=== PATIENT | female | born 1930 | race Caucasian/White ===

== ENCOUNTER 2018-10-03 08:37 | Observation (INO) ==
--- NOTE | 2018-10-03 08:52 | Emergency Department Note ---
ED Disposition Clinical Impression: Colitis, Hematochezia Disposition: Admitted as Observation Condition on Discharge: Good Time of Disposition: 11:17 - Critical Care Critical Care Time: No Attestation: On 10/03/18, the high probability of a clinically significant, sudden or life threatening deterioration of the following system(s) required my full and direct attention, intervention and personal management. The time I documented below is in addition to time spent performing reported procedures but includes the following listed in this critical care notation. Medical Decision Making - Medical Records Medical records reviewed: Yes: I reviewed the patient's medical records. - Chemo Inquiry Pt receiving controlled substance: No Chemo was queried for this patient: No Vital Signs: 10/03/18 08:41 10/03/18 09:05 10/03/18 09:26 Temperature 98.0 F Temperature Source Oral Pulse Rate [Right Radial] 72 67 62 Respiratory Rate 18 14 Blood Pressure [Right Arm] 117/67 119/62 114/54 L Blood Pressure Mean [Right Arm] 83 81 74 Blood Pressure Source [Right Arm] Automatic Cuff Automatic Cuff Automatic Cuff Blood Pressure Position [Right Arm] Sitting Sitting Sitting 02 Sat by Pulse Oximetry 96 93 L 92 L Oxygen Delivery Method Room Air Room Air Room Air 10/03/18 10:00 10/03/18 10:28 10/03/18 10:54 Temperature Temperature Source Pulse Rate [Right Radial] 65 62 64 Respiratory Rate 16 16 Blood Pressure [Right Arm] 126/55 L 121/42 L 118/58 L Blood Pressure Mean [Right Arm] 78 68 78 Blood Pressure Source [Right Arm] Automatic Cuff Automatic Cuff Automatic Cuff Blood Pressure Position [Right Arm] Sitting Supine Sitting 02 Sat by Pulse Oximetry 95 95 95 Oxygen Delivery Method Room Air Room Air Room Air 10/03/18 11:30 Temperature Temperature Source Pulse Rate [Right Radial] 62 Respiratory Rate 14 Blood Pressure [Right Arm] 118/59 L Blood Pressure Mean [Right Arm] 78 Blood Pressure Source [Right Arm] Automatic Cuff Blood Pressure Position [Right Arm] Sitting 02 Sat by Pulse Oximetry 94 L Oxygen Delivery Method Room Air - Lab Data Lab results reviewed: Yes: I reviewed the patient's lab results. Lab Results 10/03/18 08:50: WBC 13.5 H, RBC 4.35, Hgb 14.4, Hct 43.2, MCV 99.3 H, MCH 33.2 H , MCHC 33.4, RDW 12.9, Plt Count 318, MPV 7.6, Neut % (Auto) 89.4 H, Lymph % (Auto) 6.3 L, [place] % (Auto) 3.7, Eos % (Auto) 0.4, Baso % (Auto) 0.3, Neut # (Auto) 12.1 H, Lymph # (Auto) 0.9, [place] # (Auto) 0.5, Eos # (Auto) 0.1, Baso # (Auto) 0.0, Total Counted 100, Neutrophils % (Manual) 93 H, Lymphocytes % (Manual) 4 L, Atypical Lymphs % 1.0, Monocytes % (Manual) 2, Platelet Estimate Normal, RBC Morphology Normal 10/03/18 08:50: Sodium 131 L, Potassium 4.5, Chloride 96 L, Carbon Dioxide 25, Anion Gap 14.5, BUN 18, Creatinine 1.24 H, Estimated Creat Clear 30, Estimated GFR 41 L, Est GFR ( Amer) 50 L, Glucose 156 H, Calcium 9.2, Total Bilirubin 0.5, AST 16, ALT 20, Alkaline Phosphatase 81, Total Protein 7.7, Albumin 4.0, Globulin 3.7 H, Albumin/Globulin Ratio 1.1 10/03/18 08:50: PT 10.3, INR 1.00, APTT 26.4 10/03/18 08:50: ESR 13 10/03/18 08:50: C-Reactive Protein 0.7 10/03/18 10:44: Stool Occult Blood Positive A 10/03/18 11:20: Urine Color Yellow, Urine Appearance Clear, Urine pH 5.5, Ur Specific [place] <= 1.005, Urine Protein Negative, Urine Glucose (UA) Negative, Urine Ketones Negative, Urine Blood 2+, Urine Nitrate Positive, Urine Bilirubin Negative, Urine Urobilinogen 0.2, Ur Leukocyte Esterase 1+ A, Urine RBC Occasional, Urine WBC 5-10, Ur Squamous Epith Cells Occasional, Urine Bacteria Trace Result diagrams: 10/04/18 05:48 10/04/18 05:48 Orders (Tests/Meds): ED MEDICATIONS Discontinued Medications Generic Name Dose Route Start Last Admin Trade Name Freq PRN Reason Stop Dose Admin Acetaminophen 650 mg 10/03/18 12:23 Acetaminophen 325mg Tab PO 11/02/18 12:22 Q4HP PRN As Needed for Fever or Pain Amlodipine Besylate 5 mg 10/04/18 09:00 Norvasc 5mg Tablet PO 11/03/18 08:59 DAILY BREANNA Carvedilol 25 mg 10/03/18 21:00 10/03/18 20:25 Coreg 25mg Tablet PO 11/02/18 20:59 25 mg BID BREANNA Administration Sodium Chloride 1,000 mls @ 250 mls/hr 10/03/18 09:00 10/03/18 09:30 Sod Chlor 0.9% 1000ml Bag IV 11/02/18 08:59 250 mls/hr .Q4H BREANNA Administration Metronidazole 500 mg in 100 mls @ 100 mls/hr 10/03/18 11:15 10/03/18 11:10 Flagyl 500mg/100ml Ivpb IV 10/17/18 11:14 100 mls/hr Q8H BREANNA Administration Protocol Levofloxacin/Dextrose 750 mg in 150 mls @ 100 mls/hr 10/03/18 11:15 10/03/18 13:47 Levofloxacin 750mg/150ml Premix IV 10/17/18 11:14 100 mls/hr Q24H BREANNA Administration Protocol Sodium Chloride 1,000 mls @ 250 mls/hr 10/03/18 12:23 10/03/18 17:00 Sod Chlor 0.9% 1000ml Bag IV 11/02/18 08:59 250 mls/hr .Q4H BREANNA Administration Levofloxacin/Dextrose 750 mg in 150 mls @ 100 mls/hr 10/05/18 11:00 Levofloxacin 750mg/150ml Premix IV 10/19/18 10:59 Q48H BREANNA Protocol Metronidazole 500 mg in 100 mls @ 100 mls/hr 10/03/18 21:00 10/04/18 04:37 Flagyl 500mg/100ml Ivpb IV 10/17/18 20:59 100 mls/hr Q8H BREANNA Administration Protocol Sodium Chloride 1,000 mls @ 125 mls/hr 10/03/18 19:00 10/04/18 04:37 Sod Chlor 0.9% 1000ml Bag IV 11/02/18 18:59 125 mls/hr .Q8H BREANNA Administration Ioversol 75 ml 10/03/18 10:13 10/03/18 10:14 Rad-Optiray 350 100ml Vial IV 10/03/18 10:14 75 ml ONCE ONE Administration Levothyroxine Sodium 75 mcg 10/04/18 09:00 Synthroid 75mcg (0.075mg) Tablet PO 11/03/18 08:59 DAILY BREANNA Methylprednisolone Sodium Succinate 125 mg 10/03/18 11:14 10/03/18 11:20 Solu-Medrol 125mg/2ml Vial IV 10/03/18 11:15 125 mg ONCE ONE Administration Pt's Own Med 7.5 mg 10/03/18 21:00 10/03/18 20:26 Mirtazapine 7.5 Mg PO 11/02/18 20:59 7.5 mg Tab HS BREANNA Administration Pt's Own Med 5 mg 10/04/18 09:00 Oxybutynin Chloride PO 11/03/18 08:59 Er 5 Mg DAILY BREANNA Pravastatin Sodium 20 mg 10/04/18 09:00 Pravachol 20mg Tablet PO 11/03/18 08:59 DAILY BREANNA Sodium Chloride 10 ml 10/03/18 10:13 10/03/18 10:14 Rad-Saline Flush 10ml Syringe IV 10/03/18 10:14 10 ml ONCE ONE Administration Sodium Chloride 10 ml 10/03/18 12:53 Saline Flush 10ml Syringe IV 11/02/18 12:52 NEEDED PRN Maintain IV Site ORDERS Category Date Time Status Urine Culture Stat Micro 10/03/18 11:20 Results - Physician Consults Physician Consulted: Dr. Davon Birch Time: 11:16 Reason -: Admission Comment/Response: admit colitis, meds ordered and discussed General Adult HPI - General Stated complaint: diarrhea Time Seen by Provider: 10/03/18 08:48 Mode of Arrival: Ambulatory Source of Information: Patient, Spouse Limitations: No Limitations - History of Present Illness HPI narrative: diarrhea intermittently throughout week, this am noted dark blood. Had some pain in the evening, woke her up. No vomiting. No prior GI history of significance. Denies recent antibiotics. Onset (ago): week(s) (one) Location: abdomen Radiation: non-radiation Severity scale (1-10): 3 Quality: aching Consistency: intermittent Relieving factors: none Exacerbating factors: none Treatments prior to arrival: none - Related Data Home Medications Medication Instructions Recorded Confirmed RX: Acetaminophen [Acetaminophen 500 mg PO NEEDED PRN 10/03/18 10/03/18 Extra Strength] RX: Amlodipine Besylate 5 mg PO DAILY 10/03/18 10/03/18 [Amlodipine 5mg tab] RX: Aspirin 81 mg PO DAILY 10/03/18 10/03/18 RX: Carvedilol [Carvedilol 25mg 25 mg PO BID 10/03/18 10/03/18 Tab] RX: Cranberry Conc/Ascorbic Acid 1 each PO DAILY 10/03/18 10/03/18 [Cranberry Concentrate Softgel] RX: Levothyroxine Sodium 75 mcg PO DAILY 10/03/18 10/03/18 [Levothyroxine 75mcg (0.075mg) Tab] RX: Metformin HCl 500 mg PO BID 10/03/18 10/03/18 RX: Mirtazapine 7.5 mg PO HS 10/03/18 10/03/18 RX: Oxybutynin Chloride 5 mg PO DAILY 10/03/18 10/03/18 [Oxybutynin Chloride ER] RX: Pravastatin Sodium [Pravachol 20 mg PO DAILY 10/03/18 10/03/18 20mg Tablet] Previous Rx's Medication Instructions Recorded L. Acidophilus/Strept/LA P-Cornelius 0 each OP DAILY #30 capsule 10/04/18 [Georgette-Q Probiotic Capsule] levoFLOXacin [Levaquin 500mg 500 mg PO DAILY #7 tab 10/04/18 tab] metroNIDAZOLE [Flagyl 250mg 250 mg PO TID #21 tab 10/04/18 Tablet] Allergies Allergy/AdvReac Type Severity Reaction Status Date / Time No Known Allergies Allergy Unverified 07/21/17 15:07 [facility] History - Hepatitis A Screen Attestation statement:: This patient has been screened for Hepatitis A risk factors. I have reviewed the patient's past medical history: Yes ROS Obtained: Yes All systems reviewed & no additional complaints - Constitutional Constitutional: Denies chills, Denies fever(s) - Eyes Eyes: Denies change in vision - ENT Ears, Nose, Mouth, and Throat: Denies sore throat, Denies throat swelling - Cardiovascular Cardiovascular: Denies chest pain, Denies rapid heart rate, Denies slow heart rate - Respiratory Respiratory: No chest congestion, No cough, No dyspnea, No dyspnea on exertion - Gastrointestinal Gastrointestingal: Reports: abdominal pain, diarrhea, other (dark blood in stools). Denies: vomiting blood, nausea, vomiting - Genitourinary Female Genitourinary: Reports flank pain - Musculoskeletal Musculoskeletal: Reports system reviewed and no additional complaints, except as docu, Denies joint stiffness, Denies joint swelling, Denies muscle weakness - Integumentary/Breasts Skin/Breast: Denies rash - Neurologic Neurologic: Denies behavioral changes, Denies headache(s) - Hematologic/Lymphatic Henatologic/Lymphatic: Denies easy bleeding, Denies easy bruising Physical Exam - General General appearance: alert - Head Head exam: atraumatic, normocephalic, normal inspection - Eye Eye exam: Present: normal appearance, PERRL, EOMI - ENT ENT exam: Present: normal exam, normal oropharynx, mucous membranes moist, TM's normal bilaterally, normal external ear exam - Chest Chest inspection: Present: normal inspection, symmetric chest wall rise. A bsent: tenderness - Respiratory Respiratory exam: Present: normal lung sounds bilaterally. Absent: respiratory distress - Cardiovascular Cardiovascular exam: Present: regular rate, normal rhythm. Absent: JVD - Abdominal Exam Abdominal exam: Present: soft, tenderness. Absent: distention, guarding, rebound, rigidity, mass Abdominal tenderness: Present: LLQ, suprapubic - Rectal Exam Rectal exam: Present: heme (+) stool, bloody stool - Extremities Exam Extremities exam: Present: normal inspection, full ROM, normal capillary refill. Absent: calf tenderness - Back Exam Back exam: Present: normal inspection. Absent: tenderness - Neurological Exam Neurological exam: Present: alert, oriented X3 - Skin Skin exam: Present: warm, dry, intact, normal color - Other Other exam information: appears non-toxic
[2018-10-03 09:11] LABS: Basophils % 0.3 % (0.1-2.0); Eosinophils # 0.1 K/mm3 (0.0-0.4); Eosinophils % 0.4 % (0.1-12.0); Hematocrit 43.2 % (37.0-47.0); Hemoglobin 14.4 g/dL (12.2-16.2); Lymphocytes # 0.9 K/mm3 (0.7-4.5); Lymphocytes % 6.3 % (10-50); Mean Corpuscular HGB Conc 33.4 g/dL (31.8-35.4); Mean Corpuscular Hemoglobin 33.2 pg (27.0-31.2); Mean Corpuscular Volume 99.3 fl (81-99); Mean Platelet Volume 7.6 fl (7.4-10.4); Monocytes # 0.5 K/mm3 (0.1-1.0); Monocytes % 3.7 % (1.7-9.3); Neutrophils # 12.1 K/mm3 (1.8-7.8); Neutrophils % 89.4 % (37.0-80.0); Platelet Count 318 K/mm3 (142-424); Red Blood Count 4.35 M/mm3 (4.20-5.40); Red Cell Distribution Width 12.9 % (11.5-17.5); White Blood Count 13.5 K/mm3 (4.8-10.8)
[2018-10-03 09:17] LABS: Activated Partial Thrombo Time 26.4 seconds (23.6-34.0); Prothrombin Time 10.3 seconds (9.4-11.8)
[2018-10-03 09:19] LABS: Albumin/Globulin Ratio 1.1 (1.1-1.8); Anion Gap 14.5 mEq/L (5-15); Bilirubin,Total 0.5 mg/dL (0.2-1.0); Calcium 9.2 mg/dL (8.5-10.1); Globulin 3.7 gm/dl (1.3-3.2); Potassium 4.5 mmoL/L (3.5-5.1); Total Protein,Serum 7.7 gm/dL (6.4-8.2)
[2018-10-03 09:40] LABS: Lymphocytes % 4 % (10-50); Monocytes % 2 % (2-9); Neutrophils % 93 % (42-76); RBC Morphology Normal; Total Cells Counted 100
[2018-10-03 11:40] LABS: Microscopic, Urine URINE MICROSCOPIC (MICROSCOPIC)
[2018-10-03 11:44] LABS: Appearance,Urine CLEAR (Clear); Bilirubin,Urine Negative (Negative); Blood, Urine 2+ (Negative); Color,Urine YELLOW (Yellow); Glucose,Urine (UA) Negative (Negative); Ketones,Urine Negative (Negative); Leukocyte Esterase,Urine 1+ (Negative); PH,Urine 5.5 (5.0-8.5); Protein,Urine Negative (Negative); Specific Gravity, Urine <= 1.005 (1.005-1.030); Urobilinogen,Urine 0.2 EU/dl (0.2)
[2018-10-03 12:12] LABS: Bacteria,Urine Trace /lpf; RBC,Urine Occasional #/hpf (0-3); Squamous Epithelial Cell,Urine Occasional #/hpf (0-5)
--- NOTE | 2018-10-03 14:21 | Pharmacy Consult Notes ---
[facility] Pharmacy VTE Monitoring - Patient Demographics Admission date: 10/03/18 Report Date: 10/03/18 Time: 14:21 Allergies/Adverse Reactions: Patient Allergies No Known Allergies Allergy (Unverified 07/21/17 15:07) Height: 1.68 m Weight: 58.088 kg Patient Problems: Current Active Problems Colitis (Acute) Hematochezia (Acute) - VTE Risk Labs: VTE Related Lab Results Hgb 14.4 g/dL (12.2-16.2) 10/03/18 08:50 Hct 43.2 % (37.0-47.0) 10/03/18 08:50 Plt Count 318 K/mm3 (142-424) 10/03/18 08:50 PT 10.3 seconds (9.4-11.8) 10/03/18 08:50 INR 1.00 (0.9-1.1) 10/03/18 08:50 APTT 26.4 seconds (23.6-34.0) 10/03/18 08:50 BUN 18 mg/dL (7-18) 10/03/18 08:50 Creatinine 1.24 mg/dL (0.55-1.02) H 10/03/18 08:50 Estimated Creat Clear 30 mL/min (50-200) 10/03/18 08:50 Was VTE Risk Assessment Performed: Yes VTE Score: 4 VTE Risk Level: Low Risk - Prophylaxis VTE Prophylaxis Ordered?: Yes Types of VTE Prophylaxis: TEDS Knee High Location of Applied Device: Bilateral Lower Extremeties
[2018-10-03 15:25] LABS: Hematocrit 39.2 % (37.0-47.0); Hemoglobin 13.2 g/dL (12.2-16.2)
[2018-10-03 19:04] LABS: Hematocrit 38.5 % (37.0-47.0); Hemoglobin 13.3 g/dL (12.2-16.2)
[2018-10-03 23:20] LABS: Hemoglobin 12.2 g/dL (12.2-16.2)
[2018-10-04 06:21] LABS: Eosinophils % 0.1 % (0.1-12.0); Hematocrit 34.1 % (37.0-47.0); Hemoglobin 11.7 g/dL (12.2-16.2); Lymphocytes # 0.6 K/mm3 (0.7-4.5); Lymphocytes % 4.1 % (10-50); Mean Corpuscular HGB Conc 34.4 g/dL (31.8-35.4); Mean Corpuscular Hemoglobin 33.8 pg (27.0-31.2); Mean Corpuscular Volume 98.2 fl (81-99); Mean Platelet Volume 7.9 fl (7.4-10.4); Monocytes # 0.3 K/mm3 (0.1-1.0); Neutrophils # 13.9 K/mm3 (1.8-7.8); Neutrophils % 93.8 % (37.0-80.0); Platelet Count 266 K/mm3 (142-424); Red Blood Count 3.47 M/mm3 (4.20-5.40); Red Cell Distribution Width 13.1 % (11.5-17.5); White Blood Count 14.9 K/mm3 (4.8-10.8)
[2018-10-04 06:30] LABS: Anion Gap 13.3 mEq/L (5-15); Calcium 8.4 mg/dL (8.5-10.1); Potassium 4.3 mmoL/L (3.5-5.1)
--- NOTE | 2018-10-04 08:31 | H&P/Discharge Summary ---
General - General Admission date:: 10/03/18 Discharge date: 10/04/18 *Admission Date: 10/03/18 *Chief complaint: Rectal bleeding *History of present illness: 87-year-old white female with multiple medical problems including recurrent urinary tract infections, most recently treated 2 weeks ago, along with well- controlled diabetes and mild dementia who presented to the emergency department on the day of admission with slightly more frequent stools with occasional bleeding. She was evaluated in the ER, had normal blood counts, and was given IV fluids and subjected to CT scanning which revealed evidence of colitis in the sigmoid colon area. She was admitted to hospital. [facility] History I have reviewed the patient's past medical history: Yes Medical History: Reports:: Diabetes Mellitus Type 2, Hyperlipidemia, Hypertension *Have you ever received a pneumonia vaccine?: Yes *Have you received a flu vaccine this season?: Yes Laterality Cases: Left: Total Hip Replacement - *Social History Alcohol Intake: never *Occupational Status:: retired Housing: house Household Members: none *Travel in the last 8 weeks: None - Psychiatric History Expresses thoughts of harming self/others: None Suicide Plan Description: No Plan Family Hx:: Coronary Artery Disease, Diabetes, Heart Attack, Hyperlipidemia, Hypertension Review of Systems - Review of Systems Review of systems:: pertinent systems reviewed and negative unless documented below - Constitutional Denies anorexia, Denies body ache(s), Denies fever(s) - Eyes Denies blind spots - ENT Denies abnormal hearing, Denies bleeding gums - *Respiratory Denies change in phlegm color, Denies chest congestion, Denies cough - *Gastrointestinal Reports change in bowel habits, Reports change in stools, Denies abdominal pain, Denies loose stools, Denies heartburn, Denies vomiting blood, Denies bright, red blood in stools - *Musculoskeletal Denies abnormal walking - Integumentary/Breasts Denies acne, Denies hair loss - *Neurologic Denies behavioral changes, Denies headache(s) - Endocrine Denies cold intolerance - Hematologic/Lymphatic Denies easy bleeding Exam Vital signs and Labs for Last 24 Hours: Temp Pulse Resp BP Pulse Ox 97.7 F 91 H 17 166/75 H 98 10/04/18 07:22 10/04/18 07:22 10/04/18 07:22 10/04/18 07:22 10/04/18 07:22 Laboratory Results - last 24 hr 10/03/18 08:50: WBC 13.5 H, RBC 4.35, Hgb 14.4, Hct 43.2, MCV 99.3 H, MCH 33.2 H , MCHC 33.4, RDW 12.9, Plt Count 318, MPV 7.6, Neut % (Auto) 89.4 H, Lymph % (Auto) 6.3 L, [place] % (Auto) 3.7, Eos % (Auto) 0.4, Baso % (Auto) 0.3, Neut # (Auto) 12.1 H, Lymph # (Auto) 0.9, [place] # (Auto) 0.5, Eos # (Auto) 0.1, Baso # (Auto) 0.0, Total Counted 100, Neutrophils % (Manual) 93 H, Lymphocytes % (Manual) 4 L, Atypical Lymphs % 1.0, Monocytes % (Manual) 2, Platelet Estimate Normal, RBC Morphology Normal 10/03/18 08:50: Sodium 131 L, Potassium 4.5, Chloride 96 L, Carbon Dioxide 25, Anion Gap 14.5, BUN 18, Creatinine 1.24 H, Estimated Creat Clear 30, Estimated GFR 41 L, Est GFR ( Amer) 50 L, Glucose 156 H, Calcium 9.2, Total Bilirubin 0.5, AST 16, ALT 20, Alkaline Phosphatase 81, Total Protein 7.7, Albumin 4.0, Globulin 3.7 H, Albumin/Globulin Ratio 1.1 10/03/18 08:50: PT 10.3, INR 1.00, APTT 26.4 10/03/18 08:50: ESR 13 10/03/18 08:50: C-Reactive Protein 0.7 10/03/18 10:44: Stool Occult Blood Positive A 10/03/18 11:20: Urine Color Yellow, Urine Appearance Clear, Urine pH 5.5, Ur Specific [place] <= 1.005, Urine Protein Negative, Urine Glucose (UA) Negative, Urine Ketones Negative, Urine Blood 2+, Urine Nitrate Positive, Urine Bilirubin Negative, Urine Urobilinogen 0.2, Ur Leukocyte Esterase 1+ A, Urine RBC Occasional, Urine WBC 5-10, Ur Squamous Epith Cells Occasional, Urine Bacteria Trace 10/03/18 15:15: Hgb 13.2, Hct 39.2 10/03/18 19:00: Hgb 13.3, Hct 38.5 10/03/18 23:10: Hgb 12.2, Hct 35.0 L 10/04/18 05:48: WBC 14.9 H, RBC 3.47 L, Hgb 11.7 L, Hct 34.1 L, MCV 98.2, MCH 33.8 H, MCHC 34.4, RDW 13.1, Plt Count 266, MPV 7.9, Neut % (Auto) 93.8 H, Lymph % (Auto) 4.1 L, [place] % (Auto) 2.0, Eos % (Auto) 0.1, Baso % (Auto) 0.0 L, Neut # (Auto) 13.9 H, Lymph # (Auto) 0.6 L, [place] # (Auto) 0.3, Eos # (Auto) 0.0, Baso # (Auto) 0.0 10/04/18 05:48: Sodium 137, Potassium 4.3, Chloride 105, Carbon Dioxide 23, Anion Gap 13.3, BUN 12 D, Creatinine 0.83 D, Estimated Creat Clear 37, Estimated GFR 65, Est GFR ( Amer) 79 D, Glucose 184 H, Calcium 8.4 L I & O for Last 24 hours: Intake & Output 10/01/18 10/02/18 10/03/18 10/04/18 11:59 11:59 11:59 11:59 Intake Total 3100 / 3100 Output Total 600 / 600 Balance 2500 / 2500 Weight 130 lb 128 lb 1 oz Microbiology Reports for the Last 24 Hours: Microbiology 10/03/18 11:20 Urine,Clean Catch Urine Culture - Preliminary Gram Negative Rods Narrative: This morning patient is pleasant. Alert. Oriented x2, a little fuzzy about the date but in general is oriented to season and place. Oropharynx clear. No JVD. Heart rate regular with previously noted 2/6 holosystolic murmur. Lungs are clear bilaterally. Abdomen is soft, nontender, no flank tenderness. Slight tenderness over the suprapubic area. No rebound, guarding or masses palpable. Extremities are warm and well-perfused. Neurologic exam nonfocal. Hospital Course Hospital Course: Patient was admitted overnight. IV fluids and antibiotics were given. Serial blood counts were done showing slight but expected decrease in her hemoglobin secondary to delusional effect. Patient had no further bloody stools and in fact ate well this morning with 100% of her p.o. intake. Patient did have gram-negative rods culture from urine, greater than 100,000 colonies, sensitivities and identification pending at the time of discharge. Plan will be to discharge her home with Levaquin and Flagyl as well as probiotic for her colitis/UTI and I will follow her up in the office in the next week. At that point we will make a decision about referral to GI for possible sigmoidoscopy. She will be instructed on a low residue diet. Results Labs on day of discharge: Labs from last 24 hours 10/04/18 10/04/18 10/03/18 05:48 05:48 23:10 WBC 14.9 H RBC 3.47 L Hgb 11.7 L 12.2 Hct 34.1 L 35.0 L MCV 98.2 MCH 33.8 H MCHC 34.4 RDW 13.1 Plt Count 266 MPV 7.9 Neut % (Auto) 93.8 H Lymph % (Auto) 4.1 L [place] % (Auto) 2.0 Eos % (Auto) 0.1 Baso % (Auto) 0.0 L Neut # (Auto) 13.9 H Lymph # (Auto) 0.6 L [place] # (Auto) 0.3 Eos # (Auto) 0.0 Baso # (Auto) 0.0 Total Counted Neutrophils % (Manual) Lymphocytes % (Manual) Atypical Lymphs % Monocytes % (Manual) Platelet Estimate RBC Morphology ESR PT INR APTT Sodium 137 Potassium 4.3 Chloride 105 Carbon Dioxide 23 Anion Gap 13.3 BUN 12 D Creatinine 0.83 D Estimated Creat Clear 37 Estimated GFR 65 Est GFR ( Amer) 79 D Glucose 184 H Calcium 8.4 L Total Bilirubin AST ALT Alkaline Phosphatase C-Reactive Protein Total Protein Albumin Globulin Albumin/Globulin Ratio Urine Color Urine Appearance Urine pH Ur Specific [place] Urine Protein Urine Glucose (UA) Urine Ketones Urine Blood Urine Nitrate Urine Bilirubin Urine Urobilinogen Ur Leukocyte Esterase Urine RBC Urine WBC Ur Squamous Epith Cells Urine Bacteria Stool Occult Blood 10/03/18 10/03/18 10/03/18 19:00 15:15 11:20 WBC RBC Hgb 13.3 13.2 Hct 38.5 39.2 MCV MCH MCHC RDW Plt Count MPV Neut % (Auto) Lymph % (Auto) [place] % (Auto) Eos % (Auto) Baso % (Auto) Neut # (Auto) Lymph # (Auto) [place] # (Auto) Eos # (Auto) Baso # (Auto) Total Counted Neutrophils % (Manual) Lymphocytes % (Manual) Atypical Lymphs % Monocytes % (Manual) Platelet Estimate RBC Morphology ESR PT INR APTT Sodium Potassium Chloride Carbon Dioxide Anion Gap BUN Creatinine Estimated Creat Clear Estimated GFR Est GFR ( Amer) Glucose Calcium Total Bilirubin AST ALT Alkaline Phosphatase C-Reactive Protein Total Protein Albumin Globulin Albumin/Globulin Ratio Urine Color Yellow Urine Appearance Clear Urine pH 5.5 Ur Specific [place] <= 1.005 Urine Protein Negative Urine Glucose (UA) Negative Urine Ketones Negative Urine Blood 2+ Urine Nitrate Positive Urine Bilirubin Negative Urine Urobilinogen 0.2 Ur Leukocyte Esterase 1+ A Urine RBC Occasional Urine WBC 5-10 Ur Squamous Epith Cells Occasional Urine Bacteria Trace Stool Occult Blood 10/03/18 10/03/18 10/03/18 10:44 08:50 08:50 WBC RBC Hgb Hct MCV MCH MCHC RDW Plt Count MPV Neut % (Auto) Lymph % (Auto) [place] % (Auto) Eos % (Auto) Baso % (Auto) Neut # (Auto) Lymph # (Auto) [place] # (Auto) Eos # (Auto) Baso # (Auto) Total Counted Neutrophils % (Manual) Lymphocytes % (Manual) Atypical Lymphs % Monocytes % (Manual) Platelet Estimate RBC Morphology ESR 13 PT INR APTT Sodium Potassium Chloride Carbon Dioxide Anion Gap BUN Creatinine Estimated Creat Clear Estimated GFR Est GFR ( Amer) Glucose Calcium Total Bilirubin AST ALT Alkaline Phosphatase C-Reactive Protein 0.7 Total Protein Albumin Globulin Albumin/Globulin Ratio Urine Color Urine Appearance Urine pH Ur Specific [place] Urine Protein Urine Glucose (UA) Urine Ketones Urine Blood Urine Nitrate Urine Bilirubin Urine Urobilinogen Ur Leukocyte Esterase Urine RBC Urine WBC Ur Squamous Epith Cells Urine Bacteria Stool Occult Blood Positive A 10/03/18 10/03/18 10/03/18 08:50 08:50 08:50 WBC 13.5 H RBC 4.35 Hgb 14.4 Hct 43.2 MCV 99.3 H MCH 33.2 H MCHC 33.4 RDW 12.9 Plt Count 318 MPV 7.6 Neut % (Auto) 89.4 H Lymph % (Auto) 6.3 L [place] % (Auto) 3.7 Eos % (Auto) 0.4 Baso % (Auto) 0.3 Neut # (Auto) 12.1 H Lymph # (Auto) 0.9 [place] # (Auto) 0.5 Eos # (Auto) 0.1 Baso # (Auto) 0.0 Total Counted 100 Neutrophils % (Manual) 93 H Lymphocytes % (Manual) 4 L Atypical Lymphs % 1.0 Monocytes % (Manual) 2 Platelet Estimate Normal RBC Morphology Normal ESR PT 10.3 INR 1.00 APTT 26.4 Sodium 131 L Potassium 4.5 Chloride 96 L Carbon Dioxide 25 Anion Gap 14.5 BUN 18 Creatinine 1.24 H Estimated Creat Clear 30 Estimated GFR 41 L Est GFR ( Amer) 50 L Glucose 156 H Calcium 9.2 Total Bilirubin 0.5 AST 16 ALT 20 Alkaline Phosphatase 81 C-Reactive Protein Total Protein 7.7 Albumin 4.0 Globulin 3.7 H Albumin/Globulin Ratio 1.1 Urine Color Urine Appearance Urine pH Ur Specific [place] Urine Protein Urine Glucose (UA) Urine Ketones Urine Blood Urine Nitrate Urine Bilirubin Urine Urobilinogen Ur Leukocyte Esterase Urine RBC Urine WBC Ur Squamous Epith Cells Urine Bacteria Stool Occult Blood Preliminary micro results at discharge 10/03/18 11:20 Urine Culture - Preliminary Urine,Clean Catch Gram Negative Rods DS: Diagnosis - Discharge Diagnosis (1) UTI (urinary tract infection) Status: Acute (2) Colitis Status: Acute (3) Hematochezia Status: Acute Discharge Medications - Medications for Discharge Home Medication List at Discharge: New L. Acidophilus/Strept/LA P-Cornelius [Georgette-Q Probiotic Capsule] 0 each OP DAILY #30 capsule levoFLOXacin [Levaquin 500mg tab] 500 mg PO DAILY #7 tab metroNIDAZOLE [Flagyl 250mg Tablet] 250 mg PO TID #21 tab Continue Pravastatin Sodium [Pravachol 20mg Tablet] 20 mg PO DAILY Oxybutynin Chloride [Oxybutynin Chloride ER] 5 mg PO DAILY Mirtazapine 7.5 mg PO HS Levothyroxine Sodium [Levothyroxine 75mcg (0.075mg) Tab] 75 mcg PO DAILY Carvedilol [Carvedilol 25mg Tab] 25 mg PO BID Aspirin 81 mg PO DAILY Cranberry Conc/Ascorbic Acid [Cranberry Concentrate Softgel] 1 each PO DAILY Amlodipine Besylate [Amlodipine 5mg tab] 5 mg PO DAILY Metformin HCl 500 mg PO BID Acetaminophen [Acetaminophen Extra Strength] 500 mg PO NEEDED PRN PRN Reason: PAIN/FEVER
[2018-10-04 08:33] LABS: Lymphocytes % 1 % (10-50); Monocytes % 2 % (2-9); Neutrophils % 95 % (42-76); RBC Morphology Normal; Total Cells Counted 100
== END 2018-10-04 09:55 | disposition home or self-care (01) ==
LOC: ER 08:37 → 2ND 08:37
PROVIDERS: ADMIT Emergency Medicine; ATTEND Internal Medicine Adolescent Medicine
CPT/HCPCS: 36415; 74177; 80048; 80053; 81001; 82272; 85007; 85014; 85018; 85025; 85610; 85651; 85730; 86140; 87086; 87088; 87186; 96365; 96367; 96375; 99285; G0328; G0378; J1956; Q9967